=== PATIENT | female | born 1970 | race Caucasian/White ===

== ENCOUNTER 2024-02-03 10:25 | Outpatient (CLI) | payer MEDICARE | END 2024-02-03 10:26 | disposition home or self-care (01) | LOC: SCSMRI 10:25 | PROVIDERS: ATTEND Orthopaedic Surgery | DX: M54.16 Radiculopathy, lumbar region (principal); M54.50 Low back pain, unspecified; M48.061 Spinal stenosis, lumbar region without neurogenic claudication; Z98.1 Arthrodesis status | CPT/HCPCS: 72148 ==